=== PATIENT | female | born 1985 | race Caucasian/White ===

== ENCOUNTER 2022-05-04 16:01 | Emergency (ER) | payer SELFPAY ==
[2022-05-04 18:23] LABS: CORONAVIRUS 2019 SARS-COV-2 NEGATIVE (NEGATIVE); INFLUENZA A NAA NEGATIVE (NEGATIVE)
[2022-05-04] MEDS ORDERED: CLEOCIN300 MG PO (19:41)
== END 2022-05-04 20:28 | disposition home or self-care (01) ==
LOC: FER 16:01
PROVIDERS: Nurse Practitioner Family
DX: K04.7 Periapical abscess without sinus (principal); R51.9 Headache, unspecified; J45.909 Unspecified asthma, uncomplicated; Z88.1 Allergy status to other antibiotic agents
CPT/HCPCS: 96372; 99284; J1100; J1885; U0002